=== PATIENT | male | born 1960 | race African-American/Black ===

== ENCOUNTER → 2016-07-01 | Day surgery (SDC) | payer OTHER ==
[~2016-07-01] VITALS: Ht 172.7 cm; Wt 97.0 kg
[2016-07-01] VITALS (7 sets, daily range): BP systolic 135–151; BP diastolic 76–91; PULSE 58–62; TEMP 36.2–36.5; O2SAT 94–99; Ht 172.7 cm; Wt 97.0 kg
[~2016-07-01] MED LIST: ACETAMINOPHEN 325 MG TAB PO PRN; ALPPOPS5 OP; AMLO-114 PO; ASPCH81X PO; ATEN50TA8 PO; BACITRACIN 50000 UNIT VIAL ONE; BACITRACIN OINT 0.9 GM PKT ONE; CEFAZOLIN IV 1,000 MG in DEXTROSE 5% 50ML IV SCH; DORZ2SOL17 OP; FENTANYL CITRATE INJ 50 MCG/1 ML 2 ML VIAL ONE; KETOROLAC TROMETHAMINE 10 MG TAB PO PRN; LACTATED RINGER'S 1000ML IV SCH; LATA0.5S OP; LIDOCAINE HCL 1% 20 ML VIAL ONE; LISI-725 PO; MIDAZOLAM HCL 5 MG/ML 1 ML VIAL ONE; PATIENT'S ALLERGY INFO NEEDS ENTERED SCH; PATIENT'S HEIGHT AND/OR WEIGHT NEEDED SCH; PILO2SOL3 OPB; TIMO0.5S2 OP; TRD10 PO
--- NOTE | 2016-07-01 10:59 | History and Physical ---
History & Physical Date July 01, 2016. Chief Complaint Pacemaker at CHRISTINE History of Present Illness The patient is a 56 year old incarcerated male with a pacemaker, that device was implanted for syncope and periods of bradycardia. Since pacemaker implantation he has had no further symptoms. His device has been working well but has reached CHRISTINE due to battery depletion. The leads could not be evaluated once the device reached CHRISTINE, however on prior evaluations leads had been functioning well and are probably usable. The device needs to be replaced. He is therefore brought to the hospital for planned device replacement. He has no other cardiac disease. Past Medical/Surgical History Hypertension Symptomatic bradycardia Pacemaker Additional History Hepatic Disease: No Endocrine Disorder: No Kidney Disease: No Hypertension: No Heart Disease: No Bleeding Tendencies: No Infectious Diseases: No Allergies Coded Allergies: No Known Allergies (Unverified , 07/01/16) Home Medications Scheduled Amlodipine (Norvasc), 10 MG PO DAILY Aspirin (Aspirin Chewable), 81 MG PO DAILY Atenolol (Tenormin), 50 MG PO DAILY Brimonidine Tartrate (Alphagan P), 1 DROPS OP TID Dorzolamide Hcl (Trusopt Oph), 1 DROPS OP TID Latanoprost (Xalatan 0.005% Oph Analia), 1 DROPS OP HS Lisinopril (Zestril), 20 MG PO DAILY Pilocarpine Hcl (Isopto Carpine), 1 DROP OPB QID Timolol Maleate (Ophth) (Timoptic-Xe 0.5% Oph), 1 DROPS OP BID Physical Examination Skin: warm/dry, no rash Eyes: normal inspection, EOMI, sclerae normal ENT: normal ENT inspection, pharynx normal Head: normocephalic, atraumatic Neck: supple, no adenopathy, trachea midline Respiratory/Chest: lungs clear, normal breath sounds, no respiratory distress Cardiovascular: regular rate, rhythm, no edema, no murmur Abdomen / GI: normal bowel sounds, non tender Back: normal inspection Extremities: normal inspection, normal range of motion Neurologic/Psych: no motor/sensory deficits, alert, normal reflexes, oriented x 3 Addiitonal Comments: His pacemaker site in the left prepectoral region is well-healed without erythema, swelling or tenderness. Diagnosis Pacemaker at CHRISTINE Plan of Treatment I discussed the indications, procedure, risks and alternatives of pacemaker replacement with him, the leads are probably usable however we will evaluate them during surgery and I discussed possible lead revision with him as well. He understands and agrees to proceed. Consent obtained.
--- NOTE | 2016-07-01 11:00 | Procedure Note ---
Pre-Mod Sedation Assessment General Date of Moderate Sedation: July 01, 2016. Vital Signs: Vital Signs Past 12 Hours Date Time Temp Pulse Resp B/P Pulse Ox O2 Delivery O2 Flow Rate FiO2 07/01/16 10:01 36.5 58 20 151/91 99 Room Air Review Cardiovascular: regular rate, rhythm Abdomen: normal bowel sounds Lungs: lungs clear Pre-Sedation Airway Assessment Smoking Status: Never Smoker Procedure Planning Contraindications-for Mod Sed: None Yes Notes The planned sedation has been discussed with the patient and consent obtained. I have identified the patient, determined the appropriateness of sedation and have assessed the patient immediately prior to the procedure. All medicine(s) and interventions are by my order.
--- NOTE | 2016-07-01 12:31 | Procedure Note ---
Post-Mod Sedation Assessment General Date of Moderate Sedation July 01, 2016. Vital Signs: Vital Signs Past 12 Hours Date Time Temp Pulse Resp B/P Pulse Ox O2 Delivery O2 Flow Rate FiO2 07/01/16 10:01 36.5 58 20 151/91 99 Room Air Review - Discharge Criteria Vital Signs Stable: Yes Alert/Oriented/Conversant: Yes Returned to Baseline Mental St: Yes Nausea Absent/Minimal: Yes Pain/Discomfort/Absent/Minimal: Yes Normal/Baseline Respirations: Yes Active Bleeding?: No
--- NOTE | 2016-07-01 12:33 | Cardiology Procedure Brief Nt ---
Preliminary Cardiology Note Procedure Date July 01, 2016. Pre-Procedure Diagnosis pacemaker end-of-life Post-Procedure Diagnosis same Procedure(s) Performed Dual chamber pacemaker replacement [employer] Technician Dr. [employer] Maker(s) none Estimated Blood Loss 20 cc Preliminary Findings Good chronic lead measurements Recommendations Monitor briefly and discharge Specimens Old pacemaker, return to [employer] Anesthesia local with sedation Complication(s) None Disposition MTU
--- NOTE | 2016-07-01 14:23 | Discharge Instructions ---
Discharge Instructions Date of Service July 01, 2016. Admission Reason for Admission: Pacer end of life Discharge Discharge Diagnosis / Problem: Pacemaker generator reached end of life. Replacement of generator. Discharge Goals Goal(s): Improve disease control, Therapeutic intervention Activity Recommendations Activity Limitations: as noted below (Avoid lifting arm above the level of the shoulder x 2 weeks, on affected side.) Lifting Limitations: gradually increase as tolerated Exercise/Sports Limitations: until after follow-up appointment May Resume Sexual Activity: when tolerated Shower/Bathe: keep incision dry Driving or Machine Use: no limitations Do not bathe or submerge surgical wound until surgical wound completely closed / healed. . Instructions / Follow-Up Instructions / Follow-Up -Wound check and dressing change in 24 hours (to be done at correctional facility). -May D/C Dressings after 72 hours. -Follow up at [facility] [place] Dept. of Cardiology Cardiac Device [facility] in 4 weeks. Current Hospital Diet Patient's current hospital diet: AHA Diet (Heart Healthy) Discharge Diet Recommended Diet: Regular Diet (Resume usual diet.) Fluid Restriction: None Procedures Procedures Performed: 1. Explantation of [employer] Pacemaker Generator. 2. Implantation of new Dual Chamber Pacemaker Generator. Pending Studies Studies pending at discharge: no Medical Emergencies . Who to Call and When: Medical Emergencies: If at any time you feel your situation is an emergency, please call 911 immediately. . Non-Emergent Contact Non-Emergency issues call your: Primary Care Provider Call Non-Emergent contact if: you have a fever, your pain is not controlled, your pain is worsening, wound has increased drainage, wound has increased redness, wound has increased pain, you have any medication questions Department of Cardiology at [facility] [place] -- [phone]. . Past History Medical & Surgical History: (1) Symptomatic bradycardia (2) Pacemaker at end of battery life . "Provider Documentation" section prepared by Kenyon Bueno. . VTE Core Measure Inpt VTE Proph given/why not?: Treatment not indicated [place] Drug Monitoring Program Search Results: no issues identified
--- NOTE | 2016-07-26 21:48 | OPERATIVE REPORT ---
DATE OF OPERATION: 07/01/2016 PREOPERATIVE DIAGNOSIS: Pacemaker elective replacement indicator. POSTOPERATIVE DIAGNOSIS: Same. PROCEDURE: Dual-chamber pacemaker replacement. SURGEON: Hudson Luciano MD ANESTHESIA: Local with sedation. HISTORY: This is a 56-year-old incarcerated male with a pacemaker implanted for syncope and periods of bradycardia. His device reached CHRISTINE due to battery depletion. He is therefore brought to the laboratory for device replacement. DESCRIPTION OF PROCEDURE: After obtaining informed consent for the procedure, he was brought to the laboratory on 07/01/2016 being n.p.o. after midnight. He was identified in the laboratory, prepped and draped in standard sterile manner for a left-sided pacemaker replacement. The left prepectoral region was anesthetized with 1% lidocaine local anesthetic and an incision was made through the old implant scar and carried down to the pacemaker generator. The generator was dissected free of tissue and explanted. It was confirmed to be a Guidant model 1290, serial #[id number], which had reached end of life on 06/06/2016 and was implanted on 12/21/2006. This device will be returned to [facility]. The device was removed from the leads and the leads were evaluated. The atrial lead is a Guidant model 4136, serial number #[id number] implanted 12/21/2006. This lead was evaluated in bipolar configuration at a pulse width of 0.4 milliseconds through the device, the pacing threshold was 1.1 volts with a current of 1.8 milliamps, 5-volt lead impedance was 628 ohms and P-waves were sensed at 4.5 millivolts. Diaphragmatic pacing was not evaluated but this is a good threshold. The ventricular lead is a Guidant model 4137 serial number #[id number] implanted 12/21/2006. This lead was evaluated through the device at a pulse width of 0.4 milliseconds and threshold was 1.6 volts with 3.1 milliamps, 5-volt lead impedance was 523 ohms and R-waves were sensed at greater than 25 millivolts. Diaphragmatic pacing was not evaluated but this is a good lead. A new pacemaker ([employer] Accolade ELDR model L321) was attached to the leads and found to be functioning normally. It was placed in the pocket with the leads coiled beneath it and the incision was closed with a running double subcutaneous closure of 3-0 Vicryl followed by a running subcuticular skin closure of 4-0 Vicryl. Bacitracin ointment was placed on incision and a pressure dressing applied. The patient tolerated the procedure well, there were no complications and estimated blood loss was 20 mL. Details of the explanted pacemaker and the chronic leads are noted above. The new ICD is a [employer] Accolade ELDR model L321, serial #[id number]. This device was reprogrammed to final settings in the laboratory. KHLOE
== END | disposition home or self-care (01) ==
LOC: C.ACU 09:24
PROVIDERS: ATTEND Internal Medicine Cardiovascular Disease
DX: R00.1 Bradycardia, unspecified (principal); I10 Essential (primary) hypertension; Z95.0 Presence of cardiac pacemaker; Z79.82 Long term (current) use of aspirin; Z79.899 Other long term (current) drug therapy